=== PATIENT | female | born 1975 ===

== ENCOUNTER 2017-04-10 14:35 | Emergency (ER) | payer MEDICARE ==
--- NOTE | ~2017-04-10 | ER ---
PATIENT'S NAME: MASSIEL CHAPIN [facility] AGE: 41 Y [address] ROOM: [place] [id number] LOCATION: [facility] ADMIT DATE: 04/10/2017 ER/Outpatient Report DISCHARGE DATE: 04/10/2017 FAMILY PHYSICIAN: Shane Brothers MD ATTENDING PHYSICIAN: Kenneth Rashid Time of Arrival: 1440 hours. Time of Evaluation: 1445 hours. CHIEF COMPLAINT: Fall. HISTORY OF PRESENT ILLNESS: The patient reports that she fell on Monday04/08/2017. She was getting up from her bed, tripped on her shoe, twisted her left toes underneath her. When she landed on her left side, her elbow jabbed her in the ribs. She has been having left rib pain and left foot pain ever since the incident. States she did not hit her head. Did not have any loss of consciousness. She does not feel short of breath. She has not had a cough. Denies having any chest pain. She does have some general rib pain when she tends to take a deep breath. She has not been nauseated, has not vomited, has not felt feverish or chills. ALLERGIES: ON HER CHART AND REVIEWED BY ME. MEDICATIONS: On her chart and reviewed by me. PAST MEDICAL HISTORY: She had pulmonary emboli in 2011, colitis. PAST SURGICAL HISTORY: Right ovary removal, tubal ligation, D and C, colonoscopy. SOCIAL HISTORY: She denies use of tobacco, drugs, or alcohol. REVIEW OF SYSTEMS: All negative other than those mentioned in the HPI. PHYSICAL EXAMINATION: VITAL SIGNS: She weighs 68.5 kg, blood pressure is 144/86, pulse is 77, respirations 18, temperature of 97.9, O2 saturation is 98% on room air. GENERAL: She is awake, alert, and oriented x4. SKIN: [place], warm, and dry. PATIENT'S NAME: MASSIEL CHAPIN [facility] AGE: 41 Y [address] ROOM: [place] [id number] LOCATION: [facility] ADMIT DATE: 04/10/2017 ER/Outpatient Report DISCHARGE DATE: 04/10/2017 FAMILY PHYSICIAN: Shane Brothers MD ATTENDING PHYSICIAN: Kenneth Rashid RESPIRATIONS: Even and nonlabored. Lung sounds are clear throughout. HEART: Regular rate and rhythm. ABDOMEN: Soft and nondistended. Bowel sounds are present. EXTREMITIES: Left 5th toe does have some bruising, mild amount of swelling. She has strong pedal pulses. Good sensation to her toes. LABORATORY DATA AND X-RAYS: X-ray of her left foot and rib details of the left side were completed. Reviewed with Dr. Rashid. No rib fractures are noted. She does have a displaced fracture of the proximal phalanx of the fifth toe on the left side. The patient was given a postop shoe to wear for support of the foot and toe. IMPRESSION: Fracture of the left 5th toe. PLAN: Home, rest. Elevate. Wear the postop shoe for support. Ice to her foot. Prescription was written for Tabiona for pain. Dr. Woods, orthopedic provider on-call, his number was given to the patient for followup. She verbalized understanding. MENG GROSSMAN APRN FOR MD CRIS[facility]/vianca /[id number] d: 04/10/17 2253 t: 05/01/17 1654, OUTPATIENT REPORT
== END 2017-04-10 15:28 | disposition disaster alternative care site (69) ==
LOC: GACC 14:35
DX: S92.512A Displaced fracture of proximal phalanx of left lesser toe(s), initial encounter for closed fracture (principal); Z86.711 Personal history of pulmonary embolism; Z98.890 Other specified postprocedural states; Z90.721 Acquired absence of ovaries, unilateral; Z98.51 Tubal ligation status; Z87.19 Personal history of other diseases of the digestive system; Z88.5 Allergy status to narcotic agent; Z88.1 Allergy status to other antibiotic agents; Z88.2 Allergy status to sulfonamides; Z79.899 Other long term (current) drug therapy; X50.1XXA Overexertion from prolonged static or awkward postures, initial encounter; Y93.89 Activity, other specified